=== PATIENT | female | born 1975 | race Hispanic/Latino ===

== ENCOUNTER 2022-04-22 12:21 | Emergency (ER) | payer OTHER ==
[~2022-04-22] VITALS: Ht 162.6 cm; Wt 95.3 kg
[2022-04-22 12:33] VITALS: BP 153/97
[2022-04-22] MEDS ORDERED: LORAZEPAM 1 MG TABLET PO ONE (13:30)
== END 2022-04-22 13:36 | disposition home or self-care (01) ==
LOC: EDH 12:21
DX: F41.9 Anxiety disorder, unspecified (principal); R51.9 Headache, unspecified; R11.0 Nausea
CPT/HCPCS: 99282